=== PATIENT | female | born 1980 | race Caucasian/White ===

== ENCOUNTER 2016-06-01 08:05 | Emergency (ER) | payer MEDICAID ==
[~2016-06-01] VITALS: Ht 162.6 cm; Wt 90.9 kg
[2016-06-01 08:09] VITALS: Ht 162.6 cm; Wt 90.9 kg
[2016-06-01] MEDS ORDERED: ACETAMINOPHEN 500 MG TAB PO STA (08:23)
--- NOTE | 2016-06-01 10:15 | RADRPT ---
PROCEDURE: XR Knee. CLINICAL INDICATION: Right knee pain. TECHNIQUE: Three views of the right knee are available for review. COMPARISON: None available FINDINGS: No acute fracture or dislocation is seen. No radiopaque foreign body is identified. Alignment is a natomic. No significant soft tissue swelling is present. IMPRESSION: 1. No acute fracture or dislocation is seen. RPTAT: HH .Philipp Lynch MD, MD Date Time Electronically viewed and signed by .Philipp Lynch MD, on 06/01/2016 10:15 .N/
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
--- NOTE | 2016-06-01 10:16 | RADRPT ---
PROCEDURE: XR Ankle. CLINICAL INDICATION: Right ankle pain. TECHNIQUE: Three views of the right ankle were performed. COMPARISON: None. FINDINGS: No acute fracture or dislocation is seen. Small plantar calcaneal enthesophyte is noted. The ankle m ortise is symmetric. No radiopaque foreign body is identified. No significant soft tissue swelling i s noted. IMPRESSION: 1. No acute fracture or dislocation. RPTAT: UU .Philipp Lynch MD, Date Time Electronically viewed and signed by .Philipp Lynch MD, on 06/01/2016 10:16 .N/
--- NOTE | 2016-06-01 10:17 | RADRPT ---
PROCEDURE: XR Hand. CLINICAL INDICATION: Right hand pain. TECHNIQUE: Three views of the right hand were obtained. COMPARISON: No prior studies are available for comparison. FINDINGS: No acute fracture or dislocation is noted. Bone mineralization is normal. No significant soft tissu e swelling is seen. IMPRESSION: 1. No acute fracture or dislocation is seen. RPTAT: UU .Philipp Lynch MD, Date Time Electronically viewed and signed by .Philipp Lynch MD, MD on 06/01/2016 10:17 .N/
--- NOTE | 2016-06-01 10:17 | RADRPT ---
PROCEDURE: XR Wrist. CLINICAL INDICATION: Right wrist pain TECHNIQUE: Four views of the right wrist were performed. COMPARISON: No prior studies are available for comparison. FINDINGS: No evidence of fracture, dislocation, or subluxation is seen. The bones appear well mineralized. The joint spaces are well preserved. There is no significant soft tissue swelling. IMPRESSION: 1. No acute fracture or dislocation. RPTAT: UU .Philipp Lynch MD, MD Date Time Electronically viewed and signed by .Philipp Lynch MD, MD on 06/01/2016 10:16 .N/
--- NOTE | 2016-06-01 10:18 | RADRPT ---
PROCEDURE: XR Forearm. CLINICAL INDICATION: Pain. TECHNIQUE: AP and lateral views of the right forearm were obtained. COMPARISON: No prior studies are available for comparison. FINDINGS: There is no acute fracture or dislocation. No significant soft tissue swelling is noted. IMPRESSION: 1. No acute fracture or dislocation. RPTAT: UU .Philipp Lynch MD, MD Date Time Electronically viewed and signed by .Philipp Lynch MD, MD on 06/01/2016 10:18 .N/
--- NOTE | 2016-06-01 10:19 | RADRPT ---
PROCEDURE: XR Foot. CLINICAL INDICATION: Right foot pain TECHNIQUE: Three views of the right foot are available for review. COMPARISON: None available FINDINGS: No acute fracture or dislocation is seen. No radiopaque foreign body is identified. No significant soft tissue swelling is noted. IMPRESSION: 1. No acute fracture or dislocation. RPTAT: UU .Philipp Lynch MD, Date Time Electronically viewed and signed by .Philipp Lynch MD, on 06/01/2016 10:19 .N/
[2016-06-01] MEDS ORDERED: ACET325T33 PO (10:43)
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
[2016-06-01 11:03] VITALS: TEMP 98.2
== END 2016-06-01 11:03 | disposition home or self-care (01) ==
LOC: FTE 08:05
DX: S69.91XA Unspecified injury of right wrist, hand and finger(s), initial encounter (principal); S89.91XA Unspecified injury of right lower leg, initial encounter; V09.20XA Pedestrian injured in traffic accident involving unspecified motor vehicles, initial encounter
CPT/HCPCS: 72100; 73090; 73110; 73130; 73562; 73610; 73630; Z7502; Z7610